=== PATIENT | female | born 1955 | race Hispanic/Latino ===

== ENCOUNTER → 2023-09-27 13:02 | Outpatient (REF) | payer OTHER, SELFPAY | LOC: WDC 13:02 | PROVIDERS: ATTENDING PHYSICIAN Registered Nurse; FAMILY PHYSICIAN Internal Medicine; REFERRING PHYSICIAN Physician Assistant | DX: N64.4 Mastodynia (principal) | CPT/HCPCS: 76642; 77062; 77066 ==